=== PATIENT | female | born 1980 | race Caucasian/White ===

== ENCOUNTER 2020-01-18 10:02 | Emergency (ER) | payer MEDICARE, MEDICAID ==
[~2020-01-18] VITALS: Ht 170.2 cm; Wt 82.0 kg
[2020-01-18] MEDS ORDERED: ALPR-341 PO (10:08)
[2020-01-18] MEDS ORDERED: LORAZEPAM 1MG TABLET PO ONE (11:00)
[2020-01-18 11:32] LABS: *AMPHETAMINES SCREEN URINE NEGATIVE (NEGATIVE); *BENZODIAZEPINES SCREEN URINE PRESUMTIVE POSITIVE (NEGATIVE); *COCAINE SCREEN URINE NEGATIVE (NEGATIVE); CANNABINOID URINE SCREEN NEGATIVE (NEGATIVE); METHADONE URINE SCREEN NEGATIVE (NEGATIVE); OPIATES URINE SCREEN NEGATIVE (NEGATIVE); PHENCYCLIDINE URINE SCREEN NEGATIVE (NEGATIVE)
[2020-01-18 11:33] LABS: *BARBITURATES SCREEN URINE NEGATIVE (NEGATIVE)
[2020-01-18 12:50] VITALS: BP 109/72
== END 2020-01-18 13:00 | disposition home or self-care (01) ==
LOC: ER 10:02
DX: F41.1 Generalized anxiety disorder (principal); Z76.0 Encounter for issue of repeat prescription; E03.9 Hypothyroidism, unspecified; G47.00 Insomnia, unspecified
CPT/HCPCS: 80305; 81025; 99283